=== PATIENT | female | born 1990 | race Caucasian/White ===

== ENCOUNTER 2017-11-04 23:55 | Emergency (ER) | payer BC ==
[~2017-11-04] VITALS: Ht 167.6 cm; Wt 79.5 kg
[~2017-11-04 23:55] MED LIST: COLACE 100100 MG/CAP PO; PRENATAL MVI
[2017-11-05 00:04] VITALS: BP 132/73; TEMP 98.1
[2017-11-05] MEDS ORDERED: FLEXERIL 1010 MG/TAB PO (01:25)
[2017-11-05] MEDS ORDERED: CLARITIN 1010 MG/TAB PO (01:54)
[2017-11-05 03:02] VITALS: PULSE 83
== END 2017-11-05 03:02 | disposition home or self-care (01) ==
LOC: COL.ER 23:55
DX: S46.911A Strain of unspecified muscle, fascia and tendon at shoulder and upper arm level, right arm, initial encounter (principal); X50.9XXA Other and unspecified overexertion or strenuous movements or postures, initial encounter; Y93.B9 Activity, other involving muscle strengthening exercises; Y92.009 Unspecified place in unspecified non-institutional (private) residence as the place of occurrence of the external cause

== ENCOUNTER 2021-07-16 14:49 | Inpatient (IN) | payer BC ==
[~2021-07-16] VITALS: Ht 167.6 cm; Wt 107.8 kg
[2021-07-16] VITALS (14 sets, daily range): BP systolic 121–145; BP diastolic 60–95; PULSE 92–121; TEMP 97.6–98.3
[~2021-07-16 14:49] MED LIST changes: +CLARITIN 1010 MG/TAB PO; +FLEXERIL 1010 MG/TAB PO
[2021-07-16 15:38] LABS: HEMATOCRIT 39.6 % (37.0-47.0); HEMOGLOBIN 13.7 g/dl (12.5-16.0); MEAN CELL VOLUME 89 fl (80.0-100.0); MEAN CORPUSCULAR HEMOGLOBIN 31 pg (27-31); MEAN CORPUSCULAR HGB CONC 35 g/dl (33.0-37.0); MEAN PLATELET VOLUME 10.5 fl (7.4-10.4); PLATELET COUNT 219 K/mm3 (130-400); RED BLOOD COUNT 4.47 M/mm3 (4.10-5.30); REDCELL DISTRIBUTION WIDTH-CV 13.2 % (11.5-14.5)
[2021-07-16] MEDS ORDERED: COLACE 100100 MG/CAP PO (15:57)
[2021-07-16 17:09] LABS: BAND 10 % (0-10); EOSINOPHIL 2 % (0-4); LYMPHOCYTE 15 % (20.0-51.0); NEUTROPHILS 67 % (42.0-75.2); PLATELET ESTIMATE NORMAL (NORMAL)
[2021-07-17] VITALS (26 sets, daily range): BP systolic 116–159; BP diastolic 53–79; PULSE 70–106; TEMP 97.6–98.7
[2021-07-18 07:30] VITALS: BP 127/65; PULSE 92; TEMP 97.8
== END 2021-07-18 18:07 | disposition home or self-care (01) | DRG 807 ==
LOC: LDRO 14:49 → OB 15:00 → LDR 15:00 → OB 07-17 08:00
PROVIDERS: ADMIT Obstetrics & Gynecology
PROC: 10E0XZZ Delivery of Products of Conception, External Approach (ICD-10-PCS; principal; 2021-07-17)
PROC: 0KQM0ZZ Repair Perineum Muscle, Open Approach (ICD-10-PCS; 2021-07-17)
DX: O99.214 Obesity complicating childbirth (principal); Z37.0 Single live birth; O70.1 Second degree perineal laceration during delivery; Z3A.37 37 weeks gestation of pregnancy
CPT/HCPCS: J2590; J7120

== ENCOUNTER 2023-04-28 10:11 | Inpatient (IN) | payer BC ==
[~2023-04-28] VITALS: Ht 167.6 cm; Wt 104.5 kg
[2023-04-28] VITALS (50 sets, daily range): BP systolic 101–147; BP diastolic 55–78; PULSE 80–101; TEMP 97.8–98.4
--- NOTE | 2023-04-28 11:00 | NUR ---
Presents to labor and delivery for induction of labor. Assessment done, questions offered and answered. Oriented to room. Spouse at bedside.
--- NOTE | 2023-04-28 11:30 | NUR ---
Pitocin 2 shilpi units iv started as ordered and per policy.
[2023-04-28] MEDS ORDERED: MAGNESIUM250 M1 PO (12:09)
[2023-04-28] MEDS ORDERED: CALCIUM 600 PLU1 TAB (12:10)
[2023-04-28] MEDS ORDERED: TUMS500 MG (12:12)
--- NOTE | 2023-04-28 12:15 | NUR ---
Ambulates to the bathroom, then sits up on side of bed. States feeling contractions, but not bad.
--- NOTE | 2023-04-28 13:30 | NUR ---
Rests in bed, alert. Denies any needs at this time.
[2023-04-28 13:52] LABS: BASO % 0.3 % (0.0-2.0); EOS % 0.3 % (0.0-4.0); GRAN # 8.2 K/mm3 (1.4-6.5); GRAN % 69.6 % (42.2-75.2); HEMATOCRIT 40.7 % (37.0-47.0); HEMOGLOBIN 14.2 g/dl (12.5-16.0); LYMPH # 2.5 K/mm3 (1.2-3.4); LYMPH % 21.4 % (20.0-51.0); MEAN CELL VOLUME 89 fl (80.0-100.0); MEAN CORPUSCULAR HEMOGLOBIN 31 pg (27-31); MEAN CORPUSCULAR HGB CONC 35 g/dl (33.0-37.0); MEAN PLATELET VOLUME 10.4 fl (7.4-10.4); MONO # 0.8 K/mm3 (0.1-0.6); MONO % 7.1 % (1.7-9.3); PLATELET COUNT 206 K/mm3 (130-400); REDCELL DISTRIBUTION WIDTH-CV 13.4 % (11.5-14.5)
--- NOTE | 2023-04-28 19:00 | NUR ---
1900Contractions noted every 1.5-2 min. Palpate moderate. Pt encouraged to empty bladder and reposition.
--- NOTE | 2023-04-28 21:55 | NUR ---
2155Recurrent early decels noted. RN at bedside and assists pt to reposition. Pt noted to be breathing more through contractions. SVE offered, pt declines. Plan of care reviewed, call light within reach.
--- NOTE | 2023-04-28 22:10 | NUR ---
2210Pt requesting SVE. SVE /-1. Dr. Corrales updated, see physician notification. 2230Pt reports urge to push. SVE 8100/0. Dr. Corrales updated. See physician notifiaction. [id number] Corrales at bedside for delivery. 2248Pt reports urge to push. SVE 10cm. Pt pushes with ctx with Dr. Corrales and nursing staff at bedside. 2254Spontaneous vaginal delivery of viable male infant. NC x1; delivered through. Nares and mouth bulb suctioned by Dr. Corrales. Pitocin paused. [place] to mother's chest where dried and stimulated. 2256Cord clamped x2 and cut by father of . Care of assumed by Deepthi Claire RN. Local injected by Dr. Corrales for lac repair. 2300Spontaneous and intact delivery of placenta. Pitocin to 333ml/hr per protocol. Second degree perineal lac repaired by Dr. Corrales. Scant lochia noted. 2315Peri care provided, pads changed, and ice pack to perineum. Fundus firm, midline, minimal bleeding. Plan of care and safety precautions reviewed. See doctor dictation, anesthesia record, and nurses notes.
[2023-04-29 00:15] VITALS: BP 119/68; PULSE 83
[2023-04-29 00:45] VITALS: BP 117/53; PULSE 86
--- NOTE | 2023-04-29 00:45 | NUR ---
0045Fundus boggy; firms with massage. Moderate amount of lochia; resoves with fundal massage. No free flow noted. See QBL. Will continue to monitor. 0100Pt with SBA to bathroom. Voids without difficulty. Cari care provided, pads changed, and ice pack to perineum. Fundus firm, midline, and bleeding scant. Ambulatory to 215. Oriented to room and plan of care. Denies questions or needs at this time. Call light within reach.
[2023-04-29 01:45] VITALS: BP 124/58; PULSE 97; TEMP 98
[2023-04-29 08:50] VITALS: BP 116/62; PULSE 79; TEMP 97.6
--- NOTE | 2023-04-29 09:23 | NUR ---
Initial visit; Parents thanked Cancer Researcher for offering congratulations and God's blessings for the of their son. Cancer Researcher thanked family for choosing our hospital.
[2023-04-29 21:15] VITALS: BP 115/63; PULSE 85; TEMP 98.3
[2023-04-30] MEDS ORDERED: MOTRIN 800800 MG/TAB PO (08:32)
[2023-04-30 09:30] VITALS: BP 127/54; PULSE 78; TEMP 97.6
--- NOTE | 2023-04-30 11:00 | NUR ---
Discharge instructions and follow up care reviewed with pt and at the bedside. Both verbalized an understanding, agreed with the plan and states no questions or concerns at this time.
== END 2023-04-30 11:35 | disposition home or self-care (01) | DRG 807 ==
LOC: LDR 10:16 → OB 10:55
PROVIDERS: ADMIT Obstetrics & Gynecology
PROC: 10E0XZZ Delivery of Products of Conception, External Approach (ICD-10-PCS; principal; 2023-04-28)
PROC: 0KQM0ZZ Repair Perineum Muscle, Open Approach (ICD-10-PCS; 2023-04-28)
PROC: 10907ZC Drainage of Amniotic Fluid, Therapeutic from Products of Conception, Via Natural or Artificial Opening (ICD-10-PCS; 2023-04-28)
PROC: 3E033VJ Introduction of Other Hormone into Peripheral Vein, Percutaneous Approach (ICD-10-PCS; 2023-04-28)
DX: O48.0 Post-term pregnancy (principal); Z37.0 Single live birth; O70.1 Second degree perineal laceration during delivery; O77.0 Labor and delivery complicated by meconium in amniotic fluid; O99.214 Obesity complicating childbirth; O99.52 Diseases of the respiratory system complicating childbirth; J45.909 Unspecified asthma, uncomplicated; O69.81X0 Labor and delivery complicated by cord around neck, without compression, not applicable or unspecified; Z3A.40 40 weeks gestation of pregnancy
CPT/HCPCS: J2590; J7120